=== PATIENT | male | born 1960 | race Caucasian/White ===

== ENCOUNTER 2017-09-23 12:39 | Day surgery (SDC) | payer BC ==
[~2017-09-23] VITALS: Ht 162.6 cm; Wt 113.4 kg
[~2017-09-23 12:39] MED LIST: APRESOLINE25 MG PO; CELEXA10 MG PO; CLARITIN,ALAVAR10 MG PO; FLONASE ALLERG9.9 ML BOTH NARES; LASIX40 MG PO; LIPITOR10 MG PO; LO-DOSE ASPIRIN81 M1 PO; NORVASC10 MG PO; PROAIR HFA8.5 GM IH; RENVELA800 MG PO; ULORIC40 MG PO; VIAGRA100 MG PO; VITAMIN D-32000 UNI2 PO
[2017-09-23 13:36] VITALS: BP 171/76
[2017-09-23 13:42] LABS: HEMATOCRIT 31.4 % (38.0-50.0); HEMOGLOBIN 10.2 G/DL (12.5-16.6); MCH 30.8 PG (29.0-34.0); MCHC 32.5 G/DL (30.0-36.0); MCV 94.9 FL (86-99); PLATELET COUNT 290 K/uL (156-360); RBC DIS.WIDTH-CV 12.9 % (11.8-14.6); RBC DIS.WIDTH-SD 44.7 % (39-53); RED BLOOD COUNT 3.31 M/uL (4.00-5.50); WHITE BLOOD COUNT 13.5 K/uL (4.1-10.2)
[2017-09-23 13:59] LABS: CHLORIDE 111 MEQ/L (99-109); CREATININE 5.8 MG/DL (0.6-1.3); GFR ESTIMATE (CALCULATED) 11 mL/min/ (58.99-99999); GLUCOSE 90 mg/dL (70-99); POTASSIUM 4.2 MEQ/L (3.7-5.4); SODIUM 143 MEQ/L (136-147); UREA NITROGEN (BUN) 63 mg/dL (9-23)
[2017-09-23 18:04] VITALS: BP 181/77
[2017-09-23 18:40] VITALS: BP 166/73
== END 2017-09-23 18:48 | disposition home or self-care (01) ==
LOC: SDC 12:39
PROVIDERS: Surgery
DX: I12.0 Hypertensive chronic kidney disease with stage 5 chronic kidney disease or end stage renal disease (principal); N18.6 End stage renal disease; Z85.528 Personal history of other malignant neoplasm of kidney; Z87.891 Personal history of nicotine dependence; Z79.82 Long term (current) use of aspirin
CPT/HCPCS: 80048; 85027; 93005; J0690; J1644; J2250; J2405; J2720